=== PATIENT | female | born 1975 | race Caucasian/White ===

== ENCOUNTER → 2017-02-18 | Outpatient (CLI) | payer OTHER ==
--- NOTE | 2017-02-22 08:34 | MM ---
Reason for exam: screening (asymptomatic). Last mammogram was performed 1 year and 2 months ago. History: Patient had first child at age 38. Physical Findings: A clinical breast exam by your physician is recommended on an annual basis and results should be correlated with mammographic findings. MG Screening Mammo w CAD Bilateral CC and MLO view(s) were taken. Prior study comparison: December 16, 2015, bilateral MG 3d screening mammo w/cad. The breast tissue is extremely dense which could obscure a lesion on mammography. No significant changes when compared with prior studies. ASSESSMENT: Benign, BI-RAD 2 RECOMMENDATION: Routine screening mammogram of both breasts in 1 year.
== END | disposition home or self-care (01) ==
LOC: RADMAMWWP 10:50
PROVIDERS: ATTEND Obstetrics & Gynecology
DX: Z12.31 Encounter for screening mammogram for malignant neoplasm of breast (principal)

== ENCOUNTER → 2018-01-12 | Outpatient (CLI) | payer BC | END | disposition home or self-care (01) | LOC: MMGSC 11:51 | PROVIDERS: ATTEND Obstetrics & Gynecology | DX: N92.6 Irregular menstruation, unspecified (principal) | CPT/HCPCS: 36415; 82670; 83001 ==

== ENCOUNTER → 2018-01-24 | Outpatient (CLI) | payer BC ==
[2018-01-24 11:35] LABS: Basophils # (A) 0.1 k/uL (0-0.2); Basophils % (A) 1 %; Eosinophils % (A) 0 %; HCT 39.1 % (34.0-46.0); HGB 12.4 gm/dL (11.4-16.0); Lymphocytes # (A) 1.4 k/uL (1.0-4.8); Lymphocytes % (A) 23 %; MCH 29.4 pg (25.0-35.0); MCHC 31.7 g/dL (31.0-37.0); MCV 92.6 fL (80.0-100.0); Mean Platelet Volume 7.4; Monocytes # (A) 0.4 k/uL (0-1.0); Monocytes % (A) 6 %; Neutrophils # (A) 4.4 k/uL (1.3-7.7); Neutrophils % (A) 69 %; Platelet Count 284 k/uL (150-450); RBC 4.23 m/uL (3.80-5.40); RDW 12.9 % (11.5-15.5); WBC 6.4 k/uL (3.8-10.6)
== END | disposition home or self-care (01) ==
LOC: LABPAT 10:51
PROVIDERS: ATTEND Obstetrics & Gynecology
DX: Z01.812 Encounter for preprocedural laboratory examination (principal); N84.0 Polyp of corpus uteri
CPT/HCPCS: 85025

== ENCOUNTER 2018-01-31 07:28 | Day surgery (SDC) | payer BC ==
[2018-01-20 15:46] VITALS: BMI 20.4
--- NOTE | 2018-01-27 16:42 | HP ---
HISTORY AND PHYSICAL DATE OF ADMISSION: 01/31/2018. HISTORY: This is a 42-year-old 1, para 1 woman with dysfunctional uterine bleeding and finding of polyp on endometrial biopsy and ultrasound. She is scheduled to undergo diagnostic hysteroscopy with D and C and polypectomy. ALLERGIES: CLINDAMYCIN. MEDICATIONS: Multivitamin. PAST MEDICAL HISTORY: Rh incompatibility. 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 No history of abnormal Pap smears or STDs. Her had a vasectomy. SOCIAL HISTORY: She is . Negative for tobacco, alcohol, and drug use. FAMILY HISTORY: Diabetes. REVIEW OF SYSTEMS: Positive for irregular menses. Negative for recent weight gain, weight loss, fevers, chills, nausea, vomiting, shortness of breath, chest pain, palpitations, abdominal pain, rash, headaches, or visual changes. PHYSICAL EXAM: Blood pressure 102/64, height 5 feet 1 inch, weight 190 pounds, pulse 91. In general, she is a pleasant, slim female in no apparent distress. HEENT exam is unremarkable. LUNGS: Clear to auscultation bilaterally. Heart is a regular rate and rhythm. The abdomen is slim, soft and nontender. On pelvic examination, she has normal female external genitalia without lesions or irritation. The uterus is small, freely mobile and in the midline. There are no adnexal masses appreciated. Neurologic she is grossly intact with no focal deficits noted. ASSESSMENT: 42-year-old, 1, para 1 woman with dysfunctional uterine bleeding and finding of endometrial polyp. She is scheduled to undergo diagnostic hysteroscopy with D and C and polypectomy. This procedure has been reviewed with her in detail. Risks include bleeding, infection, uterine perforation with damage to internal structures. Patient understands these risks and agrees to proceed. She is scheduled on 01/31/2018. MMODL / IJN: [id number] /
[~2018-01-31 07:28] MED LIST: DEXAMETHASONE SOD PHOSPHATE 10 MG/ML 1 ML VIAL IV ONE; LACTATED RINGERS 1,000 ML IV SCH; MIDAZOLAM 2 MG/2 ML VIAL IV PRN; MORPHINE SULFATE 4 MG/0.8 ML SYRINGE (INJ) IV PRN; ONDANSETRON ODT 4 MG TAB PO ONE; Pre Op ABX Message 1 EACH MISC MISCELLANE ONE
[2018-01-31] MEDS ORDERED: LIDOCAINE 1% 20 ML VIAL (10MG/ML) FOR IV START INTRADERMA ONE (09:39)
[2018-01-31] MEDS ORDERED: fentaNYL (PF) 50 MCG/ML 2 ML AMP ONE (10:05)
[2018-01-31] MEDS ORDERED: MIDAZOLAM 2 MG/2 ML VIAL ONE (10:05)
[2018-01-31] MEDS ORDERED: LIDOCAINE 1% INJ 10MG/ML (20 ML MDV) ONE (10:05)
[2018-01-31] MEDS ORDERED: PROPOFOL 10 MG/ML 20 ML VIAL IV ONE (10:05)
[2018-01-31] MEDS ORDERED: KETOROLAC 30 MG/ML 1 ML VIAL ONE (10:05)
[2018-01-31] MEDS ORDERED: LIDOCAINE 1%-EPI 1:100,000 20 ML VIAL SQ ONE (10:22)
[2018-01-31 11:02] VITALS: TEMP 98.6
--- NOTE | 2018-01-31 11:23 | P.OP ---
Date of Procedure: 01/31/18 Preoperative Diagnosis: Dysfunctional uterine bleeding Endometrial polyp Postoperative Diagnosis: Dysfunctional uterine bleeding Endometrial polyp Cervical stenosis Procedure(s) Performed: Diagnostic hysteroscopy, polypectomy and D&C Anesthesia: MAC Surgeon: Kiah Don Estimated Blood Loss (ml): 10 IV fluids (ml): 500 Urine output (ml): 25 Pathology: other (Endometrial curettings) Condition: stable Disposition: PACU Operative Findings: Cervical stenosis. Endometrial cavity width lesion consistent with endometrial polyp emanating from the right lateral region. Description of Procedure: After the patient was met in the preoperative holding area and all questions were answered, she was taken to the operating room where anesthetic was administered without incident. She was in positioned, prepped and draped in the dorsal lithotomy position. Bladder was drained for approximately 25 mL of clear urine. Speculum was placed in the vagina and the cervix was grasped anteriorly with a single-tooth tenaculum. Paracervical block with lidocaine plus epinephrine was placed. There was cervical stenosis preventing initially sounding of the uterus. The smallest Hegar dilators were utilized to gently dilate to the internal os. At that point the diagnostic hysteroscope was introduced and with hydro-pressure some adhesions were broken. The hysteroscope was removed and the internal os was then easily dilated with Hegar dilators. This was further dilated to allow for complete passage of the diagnostic hysteroscope. The hysteroscope was then introduced and the above findings were noted. The hysteroscope was removed and the sharp banjo curette was introduced. The uterine cavity was circumferentially curettaged and the polyp forceps were introduced and tissue consistent with polyp was removed. The hysteroscope was reintroduced and removal of the polyp was confirmed. Hysteroscope was removed. The area of the tenaculum site on the cervix was bleeding therefore a [id number] suture with 3-0 Vicryl was placed and hemostasis was noted. Cervix was then observed and no active bleeding was noted. Instruments removed from the vagina. All counts reported as correct. Patient was awoken from anesthetic without incident and transported recovery area in stable condition.
[2018-01-31 11:55] VITALS: RESP 16
[2018-01-31 12:06] VITALS: BP 108/70; PULSE 84
== END 2018-01-31 12:33 | disposition home or self-care (01) ==
LOC: OR 07:28
PROVIDERS: ATTEND Obstetrics & Gynecology
DX: N84.0 Polyp of corpus uteri (principal); M48.02 Spinal stenosis, cervical region; Z88.1 Allergy status to other antibiotic agents; K21.9 Gastro-esophageal reflux disease without esophagitis
CPT/HCPCS: 81025; 88305; 58558; J2250; J1100; J2001; J3010; J1885; J2704

== ENCOUNTER → 2018-03-24 | Outpatient (CLI) | payer BC ==
--- NOTE | 2018-03-24 08:11 | US ---
EXAMINATION TYPE: US abdomen complete DATE OF EXAM: 03/24/2018 COMPARISON: NONE CLINICAL HISTORY: R10.11 Right upper quadrant pain. Intermittent nausea and indigestion x multiple ye ars EXAM MEASUREMENTS: Liver Length: 13.3 cm Gallbladder Wall: 0.2 cm CBD: 0.4 cm Spleen: 8.0 cm Right Kidney: 10.1 x 3.5 x 4.3 cm Left Kidney: 9.5 x 5.2 x 3.9 cm Pancreas: visualized portions wnl, head and tail limited by overlying midline bowel gas Liver: wnl Gallbladder: wnl Evidence for sonographic Simon's sign: no CBD: wnl Spleen: visualized portions wnl, limited by rib shadowing and overlying bowel gas Right Kidney: mild hydro extending into renal calyces Left Kidney: wnl Upper IVC: wnl Abd Aorta: wnl The liver is homogenous. The intrahepatic portion of the IVC and proximal abdominal aorta are within normal limits. There is no evidence of cholelithiasis. Common bile duct is unremarkable. The visu alized portions of the pancreas are homogenous. The spleen is unremarkable. No renal lesions are se en. IMPRESSION: Mild right-sided hydronephrosis without identified sonographic etiology. CT urogram could be performed to evaluate for obstructing calculus, ureteral stricture, or ureteral mass.
== END | disposition home or self-care (01) ==
LOC: RADUSWWP 06:51
PROVIDERS: ATTEND Family Medicine
DX: N13.30 Unspecified hydronephrosis (principal)
CPT/HCPCS: 76700

== ENCOUNTER → 2018-03-31 | Outpatient (CLI) | payer BC ==
--- NOTE | 2018-03-31 09:23 | CT ---
EXAMINATION TYPE: CT urogram wo/w con DATE OF EXAM: 03/31/2018 COMPARISON: Correlation ultrasound 03/24/2018 HISTORY: 42-year-old female unspecified hydronephrosis TECHNIQUE: Contiguous axial scanning of the abdomen and pelvis performed without and with IV Contrast , patient injected with 100 mL of Isovue 300. Delayed images through the kidneys and bladder were obt ained. Coronal/sagittal reconstructions performed. 3-D reconstructions generated on a dedicated [employer] workstation. CT DLP: 971 mGycm Automated exposure control for dose reduction was used. FINDINGS: Heart normal size without pericardial effusion. Lung bases clear without pleural effusion. Subcentimeter hypodensity anterior hepatic dome and segment 2 left liver lobe too small for accurate CT characterization, likely cyst. Portal venous system is patent. No biliary ductal dilatation. Gallbladder, adrenal glands, spleen, and pancreas show no gross abnormal body. No nephrolithiasis. Extrarenal pelvis is noted on the right with focal tortuosity of the upper right ureter passes course is behind the gonadal vein. Symmetric uptake and excretion of contrast from both kidneys. Subcentimeter hypodensity anterior upper to mid right kidney too small fractured CT characterization, most suggestive of a cyst. No suspicious renal lesion. The collecting systems appear clear. No suspicious filling defects seen along the course of either ur eter. Prominent fluid-filled small bowel loops throughout the abdomen and pelvis with bowel loops measuring up to 2.4 cm. Scattered nonenlarged and borderline sized mesenteric lymph nodes measuring up to 6 mm . What appears to be a normal appendix is noted in the right lower quadrant. Mild overall stone burden. No pericolonic inflammatory change seen. Bladder is urine distended. No abnormal filling defect seen along the opacified posterior bladder wal l. Uterus and ovaries are visualized. There is a 1.5 cm dominant follicle or functional cyst in the l eft ovary. Bones: No osseous destructive process. IMPRESSION: 1. EXTRARENAL PELVIS ON THE RIGHT. INTERVAL RESOLUTION OF THE PREVIOUS RIGHT-SIDED HYDRONEPHROSIS SEE N ON 03/24/2018 ULTRASOUND. FINDINGS MAY HAVE BEEN ON A TRANSIENT BASIS. 2. THERE IS FOCAL TORTUOSITY OF THE PROXIMAL RIGHT URETER IT COURSES BEHIND THE GONADAL VEIN. OTHE RWISE, NO SUSPICIOUS COLLECTING SYSTEM OR URETERAL FILLING DEFECT OR THICKENING. 3. A SMALL SUBCENTIMETER CYST IN THE RIGHT KIDNEY. NO SUSPICIOUS RENAL LESION OR NEPHROLITHIASIS. 4. PROMINENT FLUID-FILLED SMALL BOWEL LOOPS THROUGHOUT THE ABDOMEN AND PELVIS AND SOME BORDERLINE SIZ ED MESENTERIC LYMPH NODES. FINDINGS NONSPECIFIC BUT COULD REFLECT ENTERITIS.
== END | disposition home or self-care (01) ==
LOC: RADCTMAIN 06:58
PROVIDERS: ATTEND Family Medicine
DX: N13.30 Unspecified hydronephrosis (principal); N13.8 Other obstructive and reflux uropathy
CPT/HCPCS: 74178; 74400; Q9967

== ENCOUNTER → 2018-04-18 | Outpatient (CLI) | payer BC ==
--- NOTE | 2018-04-19 10:25 | MM ---
Reason for exam: screening (asymptomatic). Last mammogram was performed 1 year and 2 months ago. History: Patient had first child at age 38. Physical Findings: A clinical breast exam by your physician is recommended on an annual basis and results should be correlated with mammographic findings. MG 3D Screening Mammo W/Cad Bilateral CC and MLO view(s) were taken. Prior study comparison: February 18, 2017, bilateral MG screening mammo w CAD. December 16, 2015, bilateral MG 3d screening mammo w/cad. The breast tissue is extremely dense which could obscure a lesion on mammography. There is no discrete abnormality. ASSESSMENT: Negative, BI-RAD 1 RECOMMENDATION: Routine screening mammogram of both breasts in 1 year.
== END | disposition home or self-care (01) ==
LOC: RADMAMWWP 11:12
PROVIDERS: ATTEND Obstetrics & Gynecology
DX: Z12.31 Encounter for screening mammogram for malignant neoplasm of breast (principal)
CPT/HCPCS: 77063; 77067

== ENCOUNTER → 2019-05-04 | Outpatient (CLI) | payer BC ==
--- NOTE | 2019-05-05 07:59 | MM ---
Reason for exam: additional evaluation requested from prior study. Last mammogram was performed 1 year and 1 month ago. History: Patient had first child at age 38. Physical Findings: Nurse Summary: 2cm nodule in the left breast at 1 o'clock (nurse ruthie). MG 3D Diag Mammo W/Cad JOSEFINA Bilateral CC and MLO view(s) were taken. Prior study comparison: April 18, 2018, bilateral MG 3d screening mammo w/cad. February 18, 2017, bilateral MG screening mammo w CAD. The breast tissue is extremely dense which could obscure a lesion on mammography. Left upper outer quadrant focal asymmetry may represent dense breast tissue. Ultrasound will be performed per order. These results were verbally communicated with the patient and result sheet given to the patient on 05/04/19. ASSESSMENT: Incomplete: need additional imaging evaluation, BI-RAD 0 RECOMMENDATION: Ultrasound of the left breast.
--- NOTE | 2019-05-05 08:00 | USB ---
Reason for exam: additional evaluation requested from abnormal screening. History: Patient had first child at age 38. US Breast LT Left complete breast ultrasound includes all four quadrants, the retroareolar region and axilla. Finding demonstrates no cystic or solid lesion seen. Extremely dense breast tissue throughout and an island corresponding to the palpable abnormality. These results were verbally communicated with the patient and result sheet given to the patient on 05/04/19. ASSESSMENT: Negative, BI-RAD 1 RECOMMENDATION: Routine screening mammogram of both breasts in 1 year. Manage patient on a clinical basis.
== END | disposition home or self-care (01) ==
LOC: RADMAMWWP 14:03
PROVIDERS: ATTEND Family Medicine
DX: N63.20 Unspecified lump in the left breast, unspecified quadrant (principal); N63.10 Unspecified lump in the right breast, unspecified quadrant; R92.8 Other abnormal and inconclusive findings on diagnostic imaging of breast
CPT/HCPCS: 77062; 77066

== ENCOUNTER → 2020-06-04 | Outpatient (CLI) | payer BC ==
--- NOTE | 2020-06-04 10:36 | MM ---
Reason for exam: screening (asymptomatic). Last mammogram was performed 1 year and 1 month ago. History: Patient had first child at age 38. Physical Findings: A clinical breast exam by your physician is recommended on an annual basis and results should be correlated with mammographic findings. MG 3D Screening Mammo W/Cad Bilateral CC and MLO view(s) were taken. Prior study comparison: May 04, 2019, bilateral MG 3d diag mammo w/cad JOSEFINA. April 18, 2018, bilateral MG 3d screening mammo w/cad. The breast tissue is extremely dense which could obscure a lesion on mammography. There is no discrete abnormality. ASSESSMENT: Negative, BI-RAD 1 RECOMMENDATION: Routine screening mammogram of both breasts in 1 year.
== END | disposition home or self-care (01) ==
LOC: RADMAMWWP 07:03
PROVIDERS: ATTEND Family Medicine
DX: Z12.31 Encounter for screening mammogram for malignant neoplasm of breast (principal)
CPT/HCPCS: 77063; 77067

== ENCOUNTER → 2021-06-17 | Outpatient (CLI) | payer BC ==
--- NOTE | 2021-06-18 12:29 | MM ---
Reason for exam: screening (asymptomatic). Last mammogram was performed 1 year ago. History: Patient had first child at age 38. Physical Findings: A clinical breast exam by your physician is recommended on an annual basis and results should be correlated with mammographic findings. MG 3D Screening Mammo W/Cad Bilateral CC and MLO view(s) were taken. XCCL view(s) were taken of the left breast. Prior study comparison: June 04, 2020, bilateral MG 3d screening mammo w/cad. May 04, 2019, bilateral MG 3d diag mammo w/cad JOSEFINA. The breast tissue is extremely dense which could obscure a lesion on mammography. There is no discrete abnormality. ASSESSMENT: Negative, BI-RAD 1 RECOMMENDATION: Routine screening mammogram of both breasts in 1 year. Some consider bilateral ultrasound surveillance in patient with extremely dense fibroglandular tissue.
== END | disposition home or self-care (01) ==
LOC: RADMAMWWP 06:58
PROVIDERS: ATTEND Family Medicine
DX: Z12.31 Encounter for screening mammogram for malignant neoplasm of breast (principal)
CPT/HCPCS: 77063; 77067

== ENCOUNTER → 2022-06-18 | Outpatient (CLI) | payer BC ==
--- NOTE | 2022-06-19 18:59 | MM ---
Reason for Exam: Screening (asymptomatic). Last screening mammogram was performed 12 month(s) ago. Patient History: Menarche at age 11. First Full-Term at age 38. Late child-bearing (after 30). Risk Values: Cassie 5 year model risk: 1.3%. NCI Lifetime model risk: 14.0%. Prior Study Comparison: 05/04/2019 Bilateral Diagnostic Mammogram, [facility]. 06/04/2020 Bilateral Screening Mammogram, [facility]. 06/17/2021 Bilateral Screening Mammogram, [facility]. Tissue Density: The breast tissue is extremely dense which could obscure a lesion on mammography. Findings: Analyzed By CAD. There is no suspicious group of microcalcifications or new suspicious mass in either breast. Overall Assessment: Negative, BI-RAD 1 Management: Screening Mammogram of both breasts in 1 year. A clinical breast exam by your physician is recommended on an annual basis and results should be correlated with mammographic findings. Electronically signed and approved by: Blayne Espinosa DO
== END | disposition home or self-care (01) ==
LOC: RADMAMWWP 07:11
PROVIDERS: ATTEND Family Medicine
DX: Z12.31 Encounter for screening mammogram for malignant neoplasm of breast (principal)
CPT/HCPCS: 77063; 77067

== ENCOUNTER → 2022-08-19 | Outpatient (CLI) | payer BC ==
--- NOTE | 2022-08-20 12:01 | MR ---
EXAMINATION TYPE: MR brain/cspine wo DATE OF EXAM: 08/19/2022 3:50 PM COMPARISON: Same day MRA head and neck. CLINICAL INDICATION:Female, 46 years old with history of M54.2,R51.9,R26.89; TECHNIQUE: Multi planar, multi sequence imaging was performed through the brain including: T1, T2, Inversion rec overy, Diffusion weighted imaging, and gradient echo imaging. No gadolinium was given. Multi planar, multi sequence imaging was performed utilizing: T1-weighted, T2-weighted, and turbo inv ersion recovery imaging of the cervical spine. IV Contrast: None FINDINGS: The martins-white junctions, ventricular system, and cisterns appear unremarkable. Midline structures sh ow no abnormality. Diffusion-weighted imaging shows no evidence of restricted diffusion. The suscepti bility weighted images do not reveal any evidence for micro-hemorrhage. The bone marrow signal is within normal limits. The paranasal sinuses and globes are unremarkable. Alignment: The cervical vertebral bodies have preserved heights. Alignment is within normal limits gi jose rafael patient positioning. Bones: Bone signal is within normal limits. Multilevel degenerative disc disease is noted and most p ronounced at the C4-C5 vertebral levels. Cord: The spinal cord is unremarkable with regards to their signal intensity and morphology. Discs: Intervertebral disc signal is maintained. C2-C3: No significant disc pathology. The spinal canal is patent. No neural foraminal stenosis. C3-C4: No significant disc pathology. The spinal canal is patent. No neural foraminal stenosis. C4-C5: No significant disc pathology. The spinal canal is patent. Bilateral facet and uncovertebral joint arthropathy are present with mild right neural foraminal stenosis. The left neural foramen is p atent. C5-C6: A disc osteophyte complex is present which minimally narrows the ventral subarachnoid space. Bilateral facet and uncovertebral joint arthropathy are present with moderate bilateral neural choco inal stenosis. C6-C7: No significant disc pathology. The spinal canal is patent. No neural foraminal stenosis. C7-T1: No significant disc pathology. The spinal canal is patent. No neural foraminal stenosis. Other: None. IMPRESSION: 1. No evidence for disc herniation or significant spinal canal stenosis. 2. Mild disc degeneration with associated osteoarthritic changes. 3. No evidence of intracranial mass or acute/subacute infarct.
--- NOTE | 2022-08-20 12:10 | MR ---
EXAMINATION TYPE: MR angio head/neck wo con DATE OF EXAM: 08/19/2022 3:50 PM CLINICAL INDICATION:Female, 46 years old with history of M54.2,R51.9,R26.89; COMPARISON: Same day MR head and C-spine. Technical: MRA brain: 3-D [id number] Axial with MIP reconstruction. MRA neck: Multiplanar, multi-sequence imaging as well as rewe-zo-etgkex and phase contrast imaging wa s performed extracranial vasculature of the neck. 3-D reformatted images and maximum intensity proje ction reformatted images were submitted for evaluation. IV Contrast: None Findings: Vertebral arteries: The vertebral arteries are patent. Vertebral arteries are codominant. Basilar artery: The basilar artery is intact. The basilar artery bifurcation is normal. Internal Carotid arteries: The cervical, petrous, cavernous and supraclinoid segments are normal. JULIANNA: Patent with no evidence of aneurysm. ACOM: Present without evidence of aneurysm. MCA: Patent with no evidence of aneurysm. STUDENT LIFE DEAN: Patent with no evidence of aneurysm. PCOM: Hypoplastic bilaterally. RIGHT CAROTID SYSTEM: The common carotid artery is patent. The carotid bifurcations that she no evide nce for hemodynamically significant stenosis. The internal carotid arteries patent. LEFT CAROTID SYSTEM: The common carotid artery is patent. The carotid bifurcations that she no evide nce for hemodynamically significant stenosis. The internal carotid arteries patent. The origins of the great vessels and vertebral arteries appear unremarkable. IMPRESSION: 1. No evidence of intracranial aneurysm or significant stenosis. 2. No evidence of significant stenosis at the carotid bifurcations. The carotid and vertebral arteri es are patent. 3. No evidence aneurysm.
== END | disposition home or self-care (01) ==
LOC: RADMRIMAIN 14:13
PROVIDERS: ATTEND Family Medicine
DX: M47.812 Spondylosis without myelopathy or radiculopathy, cervical region (principal); M50.31 Other cervical disc degeneration, high cervical region; R51.9 Headache, unspecified; R26.89 Other abnormalities of gait and mobility
CPT/HCPCS: 70544; 70547; 70551; 72141

== ENCOUNTER → 2023-06-21 | Outpatient (CLI) | payer BC ==
--- NOTE | 2023-06-21 13:26 | MM ---
Reason for Exam: Screening (asymptomatic). Last screening mammogram was performed 12 month(s) ago. Patient History: Menarche at age 11. First Full-Term at age 38. Late child-bearing (after 30). Risk Values: Cassie 5 year model risk: 1.3%. NCI Lifetime model risk: 13.8%. Prior Study Comparison: 06/04/2020 Bilateral Screening Mammogram, [facility]. 06/17/2021 Bilateral Screening Mammogram, [facility]. 06/18/2022 Bilateral MG 3D screening mammo w/cad, [facility]. Tissue Density: The breast tissue is heterogeneously dense. This may lower the sensitivity of mammography. Findings: Analyzed By CAD. There is no suspicious group of microcalcifications or new suspicious mass. Overall Assessment: Negative, BI-RAD 1 Management: Screening Mammogram of both breasts in [address] [facility] will attempt to contact patient to return for supplemental views and ultrasound if indicated. Patient should continue monthly self-breast exams. A clinical breast exam by your physician is recommended on an annual basis. This exam should not preclude additional follow-up of suspicious palpable abnormalities. Note on Cassie scores and lifetime risk: 1. A Cassie score greater than 3% is considered moderate risk. If this is the case, consider specialist referral to assess eligibility for a risk reducing agent. 2. If overall lifetime risk for the development of breast cancer is 20% or higher, the patient may qualify for future screening with alternating mammogram and breast MRI. Electronically signed and approved by: Blayne Espinosa DO
== END | disposition home or self-care (01) ==
LOC: RADMAMWWP 07:36
PROVIDERS: ATTEND Family Medicine
DX: Z12.31 Encounter for screening mammogram for malignant neoplasm of breast (principal)
CPT/HCPCS: 77063; 77067

== ENCOUNTER → 2024-06-22 | Outpatient (CLI) | payer BC ==
--- NOTE | 2024-06-28 08:09 | MM ---
Reason for Exam: Screening (asymptomatic). Last screening mammogram was performed 12 month(s) ago. Patient History: Menarche at age 11. First Full-Term at age 38. Late child-bearing (after 30). Risk Values: Cassie 5 year model risk: 1.4%. NCI Lifetime model risk: 13.6%. Prior Study Comparison: 06/17/2021 Bilateral Screening Mammogram, [facility]. 06/18/2022 Bilateral MG 3D screening mammo w/cad, [facility]. 06/21/2023 Bilateral MG 3D screening mammo w/cad, [facility]. Tissue Density: The breasts are extremely dense, which lowers the sensitivity of mammography. Findings: Analyzed By CAD. There is no suspicious group of microcalcifications or new suspicious mass in either breast. Benign-appearing calcifications. Overall Assessment: Benign, BI-RAD 2 Management: Screening Mammogram of both breasts in 1 year. . Patient should continue monthly self-breast exams. A clinical breast exam by your physician is recommended on an annual basis. This exam should not preclude additional follow-up of suspicious palpable abnormalities. Note on Cassie scores and lifetime risk: 1. A Cassie score greater than 3% is considered moderate risk. If this is the case, consider specialist referral to assess eligibility for a risk reducing agent. 2. If overall lifetime risk for the development of breast cancer is 20% or higher, the patient may qualify for future screening with alternating mammogram and breast MRI. [facility], , 06/28/2024 8:06 AM. Electronically signed and approved by: Issac Herr M.D. Radiologis
== END | disposition home or self-care (01) ==
LOC: RADMAMWWP 07:39
PROVIDERS: ATTEND Family Medicine
DX: Z12.31 Encounter for screening mammogram for malignant neoplasm of breast
CPT/HCPCS: 77063; 77067